=== PATIENT | female | born 1960 | race Caucasian/White ===

== ENCOUNTER 2023-10-03 11:13 | Emergency (ER) | payer OTHER ==
[2023-10-03 11:29] VITALS: BP 153/59; PULSE 66; RESP 19; TEMP 97.7; BMI 29.0
[2023-10-03] MEDS ORDERED: ACETAMINOPHEN 500 MG TABLET (FP) ONE (12:34)
[2023-10-03] MEDS: ACETAMINOPHEN 500 MG TABLET (FP) PO ONE (12:36)
== END 2023-10-03 15:26 | disposition home or self-care (01) ==
LOC: JERFT 11:13
PROC: 2W3JX1Z Immobilization of Right Finger using Splint (ICD-10-PCS; principal; 2023-10-03)
DX: S69.91XA Unspecified injury of right wrist, hand and finger(s), initial encounter (principal); W20.8XXA Other cause of strike by thrown, projected or falling object, initial encounter
CPT/HCPCS: 73130-TC-RT-FY; 99283-25

== ENCOUNTER 2023-12-18 12:07 | Emergency (ER) | payer OTHER ==
[2023-12-18 12:26] VITALS: BP 145/82; PULSE 76; RESP 18; TEMP 98.4; BMI 30.1
[2023-12-18] MEDS: ACETAMINOPHEN 500 MG TABLET (FP) PO ONE (13:30)
[2023-12-18] MEDS ORDERED: ACETAMINOPHEN 500 MG TABLET (FP) ONE (13:31)
[2023-12-18 13:51] LABS: BASO % 0.7 % (0-2.0); EOS % 0.7 % (0-4.5); HEMATOCRIT 39.3 % (32.4-45.2); HEMOGLOBIN 13.2 GM/dL (10.7-15.3); MCH 30.6 pg (25.7-33.7); MCHC 33.6 g/dl (32.0-36.0); MEAN CELL VOLUME 91.2 fl (80-96); MEAN PLT VOLUME 7.5 fl (7.5-11.1); MONO % 7.9 % (3.8-10.2); NEUT % 61.7 % (42.8-82.8); PLATELET COUNT 372 10^3/uL (134-434); RBC 4.31 M/mm3 (3.60-5.2); RDW 13.5 % (11.6-15.6); WHITE BLOOD COUNT 8.7 K/mm3 (4.0-10.0)
[2023-12-18 14:21] LABS: POTASSIUM 4.2 mmol/L (3.5-5.1)
[2023-12-18 14:23] LABS: CALCIUM 10.1 mg/dL (8.5-10.1)
[2023-12-18 14:24] LABS: ALBUMIN 3.9 g/dl (3.4-5.0); BLOOD UREA NITROGEN 21.6 mg/dL (7-18); MAGNESIUM 2.4 mg/dL (1.8-2.4)
[2023-12-18 14:27] LABS: CREATININE 0.8 mg/dL (0.55-1.3)
[2023-12-18 14:28] LABS: BILIRUBIN,TOTAL 0.4 mg/dL (0.2-1)
[2023-12-18 14:29] LABS: TOT PROT 7.6 g/dl (6.4-8.2)
== END 2023-12-18 16:52 | disposition home or self-care (01) ==
LOC: JERFT 12:07
DX: M25.561 Pain in right knee (principal); M25.562 Pain in left knee; M79.604 Pain in right leg; M79.605 Pain in left leg
CPT/HCPCS: 36415; 73560-TC-LT-FY; 73560-TC-RT-FY; 80053; 83735; 85025; 99284-25

== ENCOUNTER 2024-09-16 00:24 | Emergency (ER) | payer OTHER ==
[2024-09-16 00:30] VITALS: BP 158/63; PULSE 83; RESP 17; TEMP 97.8; BMI 31.3
[2024-09-16] MEDS: IBUPROFEN 100 MG/5 ML UNIT DOSE CUPS PO ONE (01:05)
== END 2024-09-16 02:06 | disposition home or self-care (01) ==
LOC: JER 00:24
DX: S90.121A Contusion of right lesser toe(s) without damage to nail, initial encounter (principal); W22.8XXA Striking against or struck by other objects, initial encounter
CPT/HCPCS: 73610-TC-RT-FY; 73630-TC-RT-FY; 99283-25